=== PATIENT | female | born 1975 | race Caucasian/White ===

== ENCOUNTER 2018-03-01 18:23 | Emergency (ER) | payer MEDICAID ==
[~2018-03-01] VITALS: Ht 167.6 cm; Wt 162.8 kg
[2018-03-01 18:51] VITALS: Ht 167.6 cm; Wt 162.8 kg
[2018-03-01 20:10] LABS: CALCIUM 9.3 mg/dL (8.5-10.1); CARBON DIOXIDE 27.1 mmol/L (21-32); CHLORIDE SERUM 101 mmol/L (98-107); CREATININE SERUM 0.7 mg/dL (0.6-1.0); GFR1 > 60 mL/min; GLUCOSE SERUM 104 mg/dL (74-106); POTASSIUM SERUM 3.9 mmol/L (3.5-5.1); SODIUM SERUM 138 mmol/L (136-145)
[2018-03-01 20:16] LABS: ALBUMIN 3.5 g/dL (3.4-5.0); ALKALINE PHOSPHATASE 98 U/L (46-116); ALT/SGPT 34 U/L (14-59); AST/SGOT 21 U/L (15-37); BILIRUBIN TOTAL 0.24 mg/dL (0.20-1.00); LIPASE 110 IU/L (73-393)
[2018-03-01 20:18] LABS: TOTAL PROTEIN, SERUM 8.5 g/dL (6.4-8.2)
[2018-03-01 20:25] LABS: BASOPHIL % 0.3 % (0-2)
[2018-03-01 20:36] LABS: PLATELET COUNT 492 x10^3mcL (130-400)
[2018-03-01 22:46] VITALS: BP 155/66
== END 2018-03-01 22:46 | disposition home or self-care (01) ==
LOC: ED 18:23
PROVIDERS: Emergency Medicine
DX: R10.11 Right upper quadrant pain (principal); E11.9 Type 2 diabetes mellitus without complications
CPT/HCPCS: J1885; J2270; J2405; J7030; Q0092